=== PATIENT | male | born 1975 | race Asian ===

== ENCOUNTER 2019-08-31 21:29 | Emergency (ER) | payer OTHER ==
[~2019-08-31] VITALS: Ht 165.1 cm; Wt 63.0 kg
[2019-08-31 22:35] LABS: BASOPHILS % (AUTO) 0.7 % (0-1); EOSINOPHILS # (AUTO) 0.1 X10'3 (0-0.9); EOSINOPHILS % (AUTO) 1.3 % (0-6); HEMATOCRIT 43.4 % (42.0-52.0); LYMPHOCYTES # (AUTO) 1.4 X10'3 (1.1-4.8); LYMPHOCYTES % (AUTO) 22.1 % (21-51); MEAN CORPUSCULAR HEMOGLOBIN 32.1 PG (27.0-31.0); MEAN CORPUSCULAR HGB CONC 34.6 g/dL (33.0-36.5); MEAN CORPUSCULAR VOLUME 92.7 FL (78-98); MEAN PLATELET VOLUME 6.9 FL (7.4-10.4); MONOCYTES # (AUTO) 0.7 X10'3 (0-0.9); MONOCYTES % (AUTO) 10.3 % (2-12); NEUTROPHILS # (AUTO) 4.3 X10'3 (1.8-7.7); NEUTROPHILS % (AUTO) 65.6 % (42-75); PLATELET COUNT 248 X10'3 (140-440); RED BLOOD COUNT 4.68 X10'6 (4.70-6.10); RED CELL DISTRIBUTION WIDTH 14.2 % (11.5-14.5); WHITE BLOOD COUNT 6.5 X10'3 (4.5-11.0)
[2019-08-31 22:43] LABS: PARTIAL THROMBOPLASTIN TIME 30 SECONDS (22-32)
[2019-08-31 22:45] LABS: ALANINE AMINOTRANSFERASE 38 U/L (12-78); ALBUMIN 3.8 G/DL (3.4-5.0); ALKALINE PHOSPHATASE 64 IU/L (46-116); ANION GAP 5 (8-16); BILIRUBIN,TOTAL 0.9 MG/DL (0.1-1.0); BLOOD UREA NITROGEN 9 MG/DL (7-18); BUN/CREATININE RATIO 13.4 (5.4-32.0); CALCIUM 9.3 MG/DL (8.5-10.1); CHLORIDE 104 MMOL/L (99-107); CREATININE 0.67 MG/DL (0.60-1.10); GLUCOSE 89 MG/DL (70-104); SODIUM 140 MMOL/L (135-145); TOTAL CARBON DIOXIDE 30.6 MMOL/L (24-32); TOTAL PROTEIN 7.8 G/DL (6.4-8.2); eGFR > 90 ML/MIN
[2019-08-31 22:50] LABS: ASPARTATE AMINO TRANSFERASE 30 U/L (10-37); POTASSIUM 3.7 MMOL/L (3.5-5.1)
[2019-08-31] MEDS ORDERED: ipratropium/albuterol 3ml nebule NEB ONE (23:00)
--- NOTE | 2019-08-31 23:02 | NUR ---
counter clerk notified Respiratory about neb treatment pending.
[2019-08-31 23:39] VITALS: BP 123/73
== END 2019-09-01 01:20 | disposition home or self-care (01) ==
LOC: ER 21:31
DX: R07.89 Other chest pain (principal); F17.200 Nicotine dependence, unspecified, uncomplicated; F10.99 Alcohol use, unspecified with unspecified alcohol-induced disorder; Y90.9 Presence of alcohol in blood, level not specified
CPT/HCPCS: 36415; 71045; 80053; 84484; 85025; 85610; 85730; 93005; 94640; 94760; 99284